=== PATIENT | female | born 1965 ===

== ENCOUNTER 2017-01-25 09:05 | Emergency (ER) | payer OTHER ==
[2017-01-25 09:10] VITALS: BP 124/79; PULSE 61; RESP 18; TEMP 97.9; O2SAT 95; BMI 30.2
[2017-01-25] MEDS ORDERED: Oxycodone/Acetaminophen 5/325 mg Tab PO STA (09:51)
[2017-01-25] MEDS ORDERED: Oxycodone/Acetaminophen 5/325 mg Tab ONE (10:05)
--- NOTE | 2017-01-25 11:00 | ED PDOC ---
Lower Extremity Pain/Injury Time Seen by Provider: 01/25/17 09:28 Chief Complaint (Nursing): Lower Extremity Problem/Injury Chief Complaint (Provider): Right Knee Pain History Per: Patient History/Exam Limitations: no limitations Onset/Duration Of Symptoms: Days (x5) Current Symptoms Are (Timing): Still Present Additional Complaint(s): Lata Harrell is a 51 year old female presenting to the ED for an evaluation for right knee pain occurring for 5 days. The patient reports the pain worsens on ambulation. She denies any injury, trauma, or fall. The patient has taken Tylenol and Advil for her symptoms, with minimal relief. She denies swelling, redness, or fever. PMD: [facility] Past Medical History Reviewed: Historical Data, Nursing Documentation, Vital Signs Vital Signs: Last Vital Signs Temp 97.9 F 01/25/17 09:09 Pulse 61 01/25/17 09:09 Resp 18 01/25/17 09:09 BP 124/79 01/25/17 09:09 Pulse Ox 95 01/25/17 09:09 - Medical History PMH: No Chronic Diseases Denies: Chronic Kidney Disease - Surgical History Surgical History: No Surg Hx - Family History Family History: States: No Known Family Hx - Social History Current smoker - smoking cessation education provided: No Ex-Smoker (has not smoked in the last 12 months): No Alcohol: None Drugs: Denies - Home Medications Home Medications: Ambulatory Orders Medication Instructions Recorded Azithromycin [Zithromax Z-Dakota] 250 mg PO DAILY #1 tab 06/26/15 Ibuprofen [Motrin] 600 mg PO Q6 #20 tab 06/26/15 Promethazine HCl/Codeine 5 ml PO HS #80 ml 06/26/15 [Promethazine HCl-Codeine Phosphate 10 mg/5 ml] Naproxen 500 mg PO BID #20 tab 01/25/17 - Allergies Allergies/Adverse Reactions: Allergies Allergy/AdvReac Type Severity Reaction Status Date / Time No Known Allergies Allergy Verified 06/26/15 19:02 Review of Systems ROS Statement: Except As Marked, All Systems Reviewed And Found Negative Constitutional: Negative for: Fever Musculoskeletal: Positive for: Leg Pain (right knee pain). Negative for: Other (no swelling or redness to right knee) Physical Exam - Reviewed Nursing Documentation Reviewed: Yes Vital Signs Reviewed: Yes - Physical Exam Appears: Positive for: Non-toxic, No Acute Distress Head Exam: Positive for: ATRAUMATIC, NORMOCEPHALIC Eye Exam: Positive for: EOMI Cardiovascular/Chest: Positive for: Regular Rate, Rhythm Extremity: Positive for: Normal ROM (full ROM to right knee), Tenderness (to right knee). Negative for: Swelling (or redness to right knee) Neurologic/Psych: Positive for: Alert, Oriented (x3) - ECG O2 Sat by Pulse Oximetry: 95 (RA) Pulse Ox Interpretation: Normal Medical Decision Making Medical Decision Making: Time: 09:28 Impression: Right knee pain without trauma Differential diagnosis to rule out arthritis, other conditions considered Plan: * Percocet 5/325 mg Tab 1 tab PO * Toradol 15 mg IM * [RAD] Knee 3 Views RT * Reevaluation Knee Xray: FINDINGS: BONES: Normal. No fracture. JOINTS: Tiny posterior patellar osteophytes are felt to be present however otherwise no significant osteoarthritis. JOINT EFFUSION: Suspect trace suprapatellar joint effusion. OTHER FINDINGS: None. IMPRESSION: No evidence of acute displaced fracture nor dislocation. . Suspect trace suprapatellar joint effusion Scribe Attestation: Documented by Melany Miller, acting as a scribe for Emir Morel MD. Provider Scribe Attestation: All medical record entries made by the Scribe were at my direction and personally dictated by me. I have reviewed the chart and agree that the record accurately reflects my personal performance of the history, physical exam, medical decision making, and the department course for this patient. I have also personally directed, reviewed, and agree with the discharge instructions and disposition. Disposition - Clinical Impression Clinical Impression: Knee pain - Patient ED Disposition Is Patient to be Admitted: No Doctor Will See Patient In The: Office Counseled Patient/Family Regarding: Studies Performed, Diagnosis, Need For Followup - Disposition Referrals: [facility] [Outside] Disposition: Routine/Home Disposition Time: 11:58 Condition: GOOD Additional Instructions: Take your medications as instructed. Follow up with your PCP in 2-3 days. Prescriptions: Naproxen 500 mg PO BID #20 tab Instructions: Knee Pain (ED) Print Language: TELUGU
--- NOTE | 2017-01-25 11:20 | RAD ---
PROCEDURE: Right Knee Radiographs. HISTORY: right knee pain COMPARISON: None. FINDINGS: BONES: Normal. No fracture. JOINTS: Tiny posterior patellar osteophytes are felt to be present however otherwise no significant osteoarthritis. JOINT EFFUSION: Suspect trace suprapatellar joint effusion. OTHER FINDINGS: None. IMPRESSION: No evidence of acute displaced fracture nor dislocation. . Suspect trace suprapatellar joint effusion
== END 2017-01-25 12:06 | disposition home or self-care (01) ==
LOC: H.ER 09:05
DX: M25.561 Pain in right knee (principal)
CPT/HCPCS: 73562; 96372; 99282; J1885

== ENCOUNTER 2018-02-14 08:59 | Emergency (ER) | payer OTHER ==
[2018-02-14 09:15] VITALS: BMI 27.6
--- NOTE | 2018-02-14 11:18 | ED PDOC ---
HPI: Back Time Seen by Provider: 02/14/18 09:27 Chief Complaint (Nursing): Upper Extremity Problem/Injury Chief Complaint (Provider): Neck Pain and Right Arm Pain History Per: Patient History/Exam Limitations: no limitations Onset/Duration Of Symptoms: Days Current Symptoms Are (Timing): Still Present Exacerbating Factor(s): Movement Additional Complaint(s): 52 year old female presents to the ER for an evaluation of right neck pain that radiates down to her right arm onset at 8pm yesterday. She states the pain is worse with movement and she did not take any medication for relief. Further reports she has atraumatic knee pain onset for 1 year. She has xrays done which presents no abnormalities and she has not followed-up with orthopedic. PMD: [facility] Past Medical History Reviewed: Historical Data, Nursing Documentation, Vital Signs Vital Signs: Last Vital Signs Temp 98.3 F 02/14/18 09:16 Pulse 62 02/14/18 09:16 Resp 18 02/14/18 09:16 BP 129/75 02/14/18 09:16 Pulse Ox 97 02/14/18 09:16 - Medical History PMH: No Chronic Diseases Denies: Chronic Kidney Disease - Surgical History Surgical History: No Surg Hx - Family History Family History: States: Unknown Family Hx - Social History Current smoker - smoking cessation education provided: No Alcohol: None Drugs: Denies - Home Medications Home Medications: Ambulatory Orders Medication Instructions Recorded Azithromycin [Zithromax Z-Dakota] 250 mg PO DAILY #1 tab 06/26/15 Ibuprofen [Motrin] 600 mg PO Q6 #20 tab 06/26/15 Promethazine HCl/Codeine 5 ml PO HS #80 ml 06/26/15 [Promethazine HCl-Codeine Phosphate 10 mg/5 ml] RX: Naproxen 500 mg PO BID #20 tab 01/25/17 Cyclobenzaprine [Cyclobenzaprine 10 mg PO Q8 PRN #10 tab 02/14/18 HCl] RX: Naproxen [Naprosyn] 500 mg PO BID PRN #14 tab 02/14/18 - Allergies Allergies/Adverse Reactions: Allergies Allergy/AdvReac Type Severity Reaction Status Date / Time No Known Allergies Allergy Verified 06/26/15 19:02 Review of Systems ROS Statement: Except As Marked, All Systems Reviewed And Found Negative Constitutional: Negative for: Fever Cardiovascular: Negative for: Chest Pain Respiratory: Negative for: Shortness of Breath Musculoskeletal: Positive for: Neck Pain, Arm Pain (right) Neurological: Negative for: Headache Physical Exam - Reviewed Nursing Documentation Reviewed: Yes Vital Signs Reviewed: Yes - Physical Exam Appears: Positive for: In Acute Distress (mild) Head Exam: Positive for: ATRAUMATIC, NORMAL INSPECTION, NORMOCEPHALIC Skin: Positive for: Normal Color, Warm, Dry Eye Exam: Positive for: EOMI, Normal appearance, PERRL ENT: Positive for: Normal ENT Inspection Neck: Positive for: Normal, Painless ROM, Supple. Negative for: Decreased ROM Cardiovascular/Chest: Positive for: Regular Rate, Rhythm. Negative for: Murmur Respiratory: Positive for: Normal Breath Sounds. Negative for: Decreased Breath Sounds, Wheezing, Respiratory Distress Back: Negative for: Normal Inspection (right side paracervical muscle spasm and trapezius muscle tenderness), Vertebral Tenderness Extremity: Positive for: Normal ROM. Negative for: Tenderness, Pedal Edema, Deformity Neurologic/Psych: Positive for: Alert, Oriented (x3). Negative for: Motor/Sensory Deficits (equal fisher crab strength by bilateral) - ECG O2 Sat by Pulse Oximetry: 97 (RA) Pulse Ox Interpretation: Normal - Radiology X-Ray: Interpreted by Me (C-spine x-ray) X-Ray Interpretation: No Acute Disease - Progress Condition: Re-examined, Improved Medical Decision Making Medical Decision Making: Time: 1024 Initial Plan: Flexeril 10mg Toradol 30mg Cervical Spine AP & lateral [RAD] Reevaluation Scribe Attestation: Documented by Estee Salinas, acting as a scribe for Steve Tomlin PA-C Provider Scribe Attestation: All medical record entries made by the Scribe were at my direction and personally dictated by me. I have reviewed the chart and agree that the record accurately reflects my personal performance of the history, physical exam, medical decision making, and the department course for this patient. I have also personally directed, reviewed, and agree with the discharge instructions and disposition. Disposition - Clinical Impression Clinical Impression: Cervical radiculopathy, Knee pain - Patient ED Disposition Is Patient to be Admitted: No - Disposition Referrals: [facility] [Outside] [facility] [Outside] Disposition: Routine/Home Disposition Time: 11:16 Condition: STABLE Additional Instructions: FOLLOW UP WITH [facility] FOR FURTHER EVALUATION RETURN TO ED IMMEDIATELY IF SYMPTOMS WORSEN JASEN BRADLEY, thank you for letting us take care of you today. Your provider was Elizabeth Price MD and you were treated for RT SHOULDER PAIN. The emergency medical care you received today was directed at your acute symptoms. If you were prescribed any medication, please fill it and take as directed. It may take several days for your symptoms to resolve. Return to the Emergency Department if your symptoms worsen, do not improve, or if you have any other problems. Please contact your doctor or call one of the physicians/clinics you have been referred to that are listed on the Patient Visit Information form that is included in your discharge packet. Bring any paperwork you were given at discharge with you along with any medications you are taking to your follow up visit. Our treatment cannot replace ongoing medical care by a primary care provider outside of the emergency department. Thank you for allowing the [facility] team to be part of your care today. If you had an X-Ray or CT scan: A Radiologist will review the ED reading if any change in treatment is needed we will contact you. If you had a blood, urine, or wound culture: It will take several days for the results, if any change in treatment is needed we will contact you. If you had an STI test: It will take 48 hours for the results. Please call after 1 week if you have not heard back. Prescriptions: Cyclobenzaprine [Cyclobenzaprine HCl] 10 mg PO Q8 PRN #10 tab PRN Reason: Muscle Spasm RX: Naproxen [Naprosyn] 500 mg PO BID PRN #14 tab PRN Reason: Pain Instructions: Radiculopathy (DC), Knee Pain (DC) Print Language: GREENLANDIC
[2018-02-14 11:28] VITALS: BP 120/71; PULSE 65; RESP 16; TEMP 98
[2018-02-14 12:33] VITALS: O2SAT 97
--- NOTE | 2018-02-14 14:55 | RAD ---
Date of service: 02/14/2018 PROCEDURE: Cervical Spine Radiographs. HISTORY: Pain. COMPARISON: None available. FINDINGS: BONES: Alignment maintained. No fracture. Dens Intact. DISC SPACES: Normal. SOFT TISSUES: Normal. No prevertebral soft tissue swelling. OTHER FINDINGS: None. IMPRESSION: Unremarkable cervical spine radiographs
== END 2018-02-14 11:29 | disposition home or self-care (01) ==
LOC: H.ER 08:59
DX: M54.12 Radiculopathy, cervical region (principal); M25.569 Pain in unspecified knee
CPT/HCPCS: 72040; 96372; 99283; J1885